=== PATIENT | female | born 1970 | race Caucasian/White ===

== ENCOUNTER 2016-09-22 11:08 | Emergency (ER) | payer MEDICAID ==
[2016-09-22 11:10] VITALS: BP 154/74
== END 2016-09-22 13:12 | disposition home or self-care (01) ==
LOC: ED 11:08
DX: D17.39 Benign lipomatous neoplasm of skin and subcutaneous tissue of other sites (principal); N63 Unspecified lump in breast; E66.9 Obesity, unspecified